=== PATIENT | male | born 1955 | race Caucasian/White ===

== ENCOUNTER 2018-12-04 09:54 | Emergency (ER) | payer BC ==
[2018-12-04 10:03] VITALS: BP 151/85
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
== END 2018-12-04 12:36 | disposition home or self-care (01) ==
LOC: UCEAST 09:54
DX: M51.37 Other intervertebral disc degeneration, lumbosacral region (principal); M62.830 Muscle spasm of back; I10 Essential (primary) hypertension; I48.91 Unspecified atrial fibrillation; Z88.1 Allergy status to other antibiotic agents; Z88.0 Allergy status to penicillin; F17.210 Nicotine dependence, cigarettes, uncomplicated
CPT/HCPCS: 72110; 99212; G0463

== ENCOUNTER 2019-05-03 10:18 | Emergency (ER) | payer BC ==
[2019-05-03] MEDS ORDERED: EPINEPHRINE 1 MG/ML 1 ML VIAL IM ONE (10:21)
[2019-05-03] MEDS ORDERED: methylPREDNISolone 125 MG* 2 ML VIAL IV ONE (10:23)
[2019-05-03] MEDS ORDERED: Famotidine IV* 10 MG/ML 2 ML (20 mg) IV SLOW PU ONE (10:24)
[2019-05-03] MEDS ORDERED: diPHENhydraMINE IV* 50 MG/ML 1 ml VIAL (BENADRYL) IV ONE (10:24)
--- NOTE | 2019-05-03 10:31 | UC ---
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 No other symptoms. - History of Current Complaint Chief Complaint: UCAllergicReaction Stated Complaint: POSS ALLERGIC REACTION Time Seen by Provider: 05/03/19 10:20 Hx Obtained From: Patient Pain Intensity: 2 - Allergies/Home Medications Allergies/Adverse Reactions: Allergies Allergy/AdvReac Type Severity Reaction Status Date / Time amoxicillin [From Augmentin] Allergy Rash Verified 12/04/18 10:04 clavulanic acid Allergy Rash Verified 12/04/18 10:04 [From Augmentin] PMH/Surg Hx/FS Hx/Imm Hx - Additional Past Medical History Additional PMH: Past Medical History : Atrial fibrillation, melanoma Past Surgical History: Tonsillectomy as Family History : non contributory Social History : Daily alcohol, daily smoker, no drug use. Previously Healthy: Yes - Surgical History Surgical History: Yes Surgery Procedure, Year, and Place: tonsils out as a kid - Family History Known Family History: Positive: Hypertension, Non-Contributory - Social History Alcohol Use: Daily Alcohol Amount: 1 drinks day Substance Use Type: None Smoking Status (MU): Current Every Day Smoker Type: Cigarettes Amount Used/How Often: 3/4 pdd Length of Time of Smoking/Using Tobacco: 19+ YEARS Household Exposure Type: Cigarettes Review of Systems All Other Systems Reviewed And Are Negative: Yes Constitutional: Positive: Negative Skin: Positive: Other - sting by yellow jacket on finger Eyes: Positive: Other - puffy eyelids ENT: Positive: Negative Respiratory: Positive: Other - chest tightness Cardiovascular: Positive: Negative Gastrointestinal: Positive: Negative Genitourinary: Positive: Negative Motor: Positive: Negative Neurovascular: Positive: Negative Musculoskeletal: Positive: Negative Neurological: Positive: Negative Psychological: Positive: Negative Is Patient Immunocompromised?: No Physical Exam - Summary Physical Exam Summary: Physical Exam: Const: Appears well. No signs of apparent distress present. Alert and oriented x 3. Musculo: Walks with a normal gait. Head/Face: Atraumatic, normocephalic on inspection. Eyes: EOMI and PERRLA in both eyes. Conjunctivae clear. No discharge noted , edema is noted in the eyelids and slightly around the lips. ENT: Hearing normal, TM normal appearing bilaterally No tenderness to palpation on maxillary and frontal sinus. No pharyngeal erythema or exudates . Uvula is midline. No cervical or submandibular lymphadenopathy noted. Respiratory: Respirations are unlabored. Lungs clear to auscultation bilaterally, no wheezing , rhonchi or rales noted . CVS: Regular rate and Rhythm, S1S2 normal , no murmurs identified. Extremities: Peripheral circulation is grossly normal. Pulses 2+ Abdomen : Soft non tender , nondistended , Bowel sounds present . No guarding , rebound tenderness or rigidity noted. Skin:left index finger- distal phalanx with mild erythema and tenderness to the sting site Neuro: Cranial nerves II to XII intact, motor and sensory intact. DTR Intact bilaterally. Mood is normal. Affect is normal. Triage Information Reviewed: Yes Vital Signs: Initial Vital Signs Temp 98.0 F 05/03/19 10:19 Pulse 90 05/03/19 10:19 Resp 18 05/03/19 10:19 BP 160/95 05/03/19 10:19 Pulse Ox 98 05/03/19 10:19 Vital Signs Reviewed: Yes Allergic Reaction Course/Dx - Course Course Of Treatment: During the visit today, He was given 1 dose of epinephrine, Benadryl and IV Solu-Medrol and pepcid Started on normal saline IV drip Upon reevaluation he felt much better. He is comfortable with going home. Repeat Vitals were stable Medications are prescribed to the pharmacy and he was advised on strict precautions to take them for next 3-5 days and return to ER if any symptoms get worse. He will follow with his primary care doctor and follow with military communications specialist. Patient expressed understanding . - Differential Dx/Diagnosis Provider Diagnosis: Allergic reaction, Acute anaphylaxis Discharge ED - Sign-Out/Discharge Documenting (check all that apply): Patient Departure All imaging exams completed and their final reports reviewed: No Studies - Discharge Plan Condition: Stable Disposition: HOME Prescriptions: diPHENhydraMINE PO* [Benadryl PO 50 MG CAP*] 50 mg PO Q6H PRN 7 Days #28 cap PRN Reason: Itching EPINEPHrine [Epipen] 0.3 mg IM ONCE 1 Days #2 auto.injct predniSONE [Prednisone 20 MG TAB] 60 mg PO DAILY 5 Days #15 tablet Ranitidine TAB (NF) [Zantac TAB (NF)] 150 mg PO BID 7 Days #14 tab Sulfamethox/Trimethoprim DS* [Bactrim DS 800/160 TAB*] 1 tab PO BID 7 Days #14 tab Patient Education Materials: Anaphylaxis (ED), Allergies (ED) Referrals: Rafa Moreno MD [Primary Care Provider] - 1 Day Terry Carrera MD [Medical Doctor] - 1 Week Additional Instructions: Please start taking the medication as prescribed to the pharmacy . I will also prescribe EpiPen to be used as needed if he have another allergic reaction Follow up with your primary care doctor tomorrow. Follow up with allergy and asthma specialist within a week Patients blood pressure slightly high in Urgent care today , plan follow up with PCP for better control Return to Urgent care / ER if symptoms get worse. - Billing Disposition and Condition Condition: STABLE Disposition: Home
[2019-05-03] MEDS ORDERED: NS 0.9% 1000 ML** 1,000 ML IV ONE (10:50)
[2019-05-03 12:52] VITALS: BP 155/89
== END 2019-05-03 12:49 | disposition home or self-care (01) ==
LOC: UCEAST 10:18
DX: T63.441A Toxic effect of venom of bees, accidental (unintentional), initial encounter (principal); T78.2XXA Anaphylactic shock, unspecified, initial encounter; Y92.9 Unspecified place or not applicable; I48.91 Unspecified atrial fibrillation; F17.210 Nicotine dependence, cigarettes, uncomplicated; Z85.820 Personal history of malignant melanoma of skin
CPT/HCPCS: 96360; 96372; 96374; 96376; 99212; G0463; J1200; J2930